=== PATIENT | female | born 1950 | race Two or more races ===

== ENCOUNTER 2022-05-12 22:55 | Emergency (ER) | payer OTHER ==
[~2022-05-12] VITALS: Ht 157.5 cm; Wt 74.8 kg
[~2022-05-12 22:55] MED LIST: KETO10TA2 PO
[2022-05-12] MEDS ORDERED: ZIAC 2.5-6.251 EACH PO (23:30)
== END 2022-05-13 11:20 | disposition home or self-care (01) ==
LOC: ER 22:55
DX: M79.662 Pain in left lower leg (principal); I10 Essential (primary) hypertension